=== PATIENT | male | born 1990 ===

== ENCOUNTER 2022-10-09 12:46 | Emergency (ER) | payer SELFPAY ==
--- NOTE | 2022-10-09 12:45 | DI.CT_ITS ---
Exam(s) CT HEAD WO EXAM: CT HEAD WO CLINICAL HISTORY: new onset seizure activity. TECHNIQUE: Imaging Protocol: Axial computed tomography images with coronal and sagittal reformatted images were created and reviewed COMPARISON: No exams were available for comparison FINDINGS: The ventricular system is normal in appearance. No evidence of acute intracranial hemorrhage, mass effect, or midline shift. The orbital structures are unremarkable. The temporal bone structures appear intact. Calvarium: Normal. Visualized Paranasal sinuses/Mastoids: Clear. IMPRESSION: Normal cranial CT. RADIATION DOSE DELIVERED: Total DLP Total DLP DATA REPOSITORY: All CT scans at this facility are submitted to the National Radiology Data Registry (NRDR) Dose Index Registry (DIR) with the [employer] ([employer]). RADIATION OPTIMIZATION: All CT scans at this facility use at least one of these dose optimization te chniques: automated exposure control; mA and/or kV adjustment per patient size (includes targeted exa ms where dose is matched to clinical indication); or iterative reconstruction.
[2022-10-09 12:50] VITALS: BP 116/65; PULSE 79; RESP 17; TEMP 37.4; O2SAT 97
[2022-10-09] MEDS: Lactated Ringers 500 ML 1000 ML IV (13:34)
[2022-10-09 13:37] LABS: Abs Immature Grans 0.02 10^3/uL (0.0-0.06); Absolute Basophil Count 0.02 10^3/uL (0.0-0.2); Absolute Lymphocyte Count 1.25 10^3/uL (1.2-3.4); Absolute Monocyte Count 0.38 10^3/uL (0.1-0.8); Absolute Neutrophil Count 6.59 10^3/uL (1.2-6.7); Basophils % 0.2; Eosinophils % 1.2; HCT 40.1 % (40.0-50.0); HGB 13.4 g/dL (13.5-17.5); Immature Grans % 0.2; MCH 31.4 pg (27.0-33.0); MCHC 33.4 % (32.0-36.0); MCV 94 fL (80-95); MPV 10.8 fL (8.0-11.0); Monocytes % 4.5; Neutrophils % 78.9; RBC 4.27 10^6/uL (4.36-5.78); RDW 12.2 % (11.8-14.1); RDW-SD 41.9 fL; WBC 8.36 10^3/uL (4.4-10.8)
[2022-10-09 14:01] LABS: ALT 46 U/L (16-63); AST 30 U/L (15-37); Albumin 4.3 g/dL (3.4-5.0); Alkaline Phosphatase 96 U/L (46-116); Anion Gap 7.3 mmol/L (3-11); BUN 13 mg/dL (7-18); Bilirubin, Total 0.5 mg/dL (0.2-1.0); CO2 28.7 mmol/L (21.0-32.0); CREATININE 0.9 mg/dL (0.70-1.30); Calcium 8.8 mg/dL (8.5-10.1); Chloride 102 mmol/L (98-107); Estimated GFR 115.65 (mL/min/1.73m2); Glucose 97 mg/dL (74-106); Magnesium 2.2 mg/dL (1.8-2.4); Potassium 4.3 mmol/L (3.5-5.1); Sodium 138 mmol/L (136-145); Total Protein 7.9 g/dL (6.4-8.2); Troponin I < 50 ng/L (<or=60)
[2022-10-09 14:05] LABS: Platelet Count 115 10^3/uL (130-400)
--- NOTE | 2022-10-09 14:29 | W.ED.GENAD ---
Discharge Plan Disposition Patient Disposition: Home Condition: Stable Discharge Details Clinical Impression: Generalized tonic-clonic seizure ED Provider: Jay Jay Grover Home Meds and New Rx's Prescriptions: New levetiracetam [Keppra] 500 mg tablet 500 mg PO BID Qty: 90 0RF Discharge Instructions Additional Instructions: Please take Keppra as prescribed. This medication is available at [facility] at reduced cost. Please follow-up with neurology. Call to schedule an appointment. No operating heavy machinery or driving a motor vehicle until cleared by neurology. Return to the emergency department immediately for any worsening or new concerning symptoms. Referrals: Candelaria Mortensen MD [ [facility] STAFF PHYSICIAN] - Medical Decision Making [id number]--32-year-old male with history of prior seizures, here after episode of loss of consciousness with witnessed seizure activity. I suspect the patient has undiagnosed epilepsy. Unclear if patient has had appropriate work-up in the past as he is here from [place] for temporary work. He notes he has not been on antiepileptic medication. CT of the head was interpreted by radiology: Negative. Labs reviewed and nondiagnostic. I considered other etiologies including arrhythmia. EKG was reviewed and interpreted by me: Please see report, sinus rhythm 67 bpm, benign early repol pattern, normal intervals. Patient was observed and on reassessment remained stable. Keppra 1500 mg IV bolus was administered. Plan is to discharge on Keppra 500 mg twice daily. I called and spoke with Dr. Mortensen and discussed ED presentation course and she agrees with treatment plan. She be happy to see the patient in follow-up in the next couple weeks. Patient was instructed to not use heavy machinery or operate motor vehicle until cleared by neurology. Lab Data Lab results reviewed: Yes I reviewed the patient's lab results. Labs: Laboratory Tests Range/Units 10/09/22 10/09/22 13:23 13:23 WBC (4.4-10.8) 10^3/uL 8.36 RBC (4.36-5.78) 10^6/uL 4.27 L Hgb (13.5-17.5) g/dL 13.4 L Hct (40.0-50.0) % 40.1 MCV (80-95) fL 94 MCH (27.0-33.0) pg 31.4 MCHC (32.0-36.0) % 33.4 RDW (11.8-14.1) % 12.2 Plt Count (130-400) 10^3/uL 115 L MPV (8.0-11.0) fL 10.8 Immature Gran % 0.2 Neutrophils % 78.9 Lymphocytes % 15.0 Monocytes % 4.5 Eosinophils % 1.2 Basophils % 0.2 Nucleated RBC % (0.0-0.3) % 0.0 Absolute Neutrophils (1.2-6.7) 10^3/uL 6.59 Absolute Lymphocytes (1.2-3.4) 10^3/uL 1.25 Absolute Monocytes (0.1-0.8) 10^3/uL 0.38 Absolute Eosinophils (0.0-0.7) 10^3/uL 0.10 Absolute Basophils (0.0-0.2) 10^3/uL 0.02 Sodium (136-145) mmol/L 138 Potassium (3.5-5.1) mmol/L 4.3 Chloride (98-107) mmol/L 102 Carbon Dioxide (21.0-32.0) mmol/L 28.7 Anion Gap (3-11) mmol/L 7.3 BUN (7-18) mg/dL 13 Creatinine (0.70-1.30) mg/dL 0.9 Est GFR (CKD-EPI 2020) (mL/min/1.73m2) 115.65 Glucose (74-106) mg/dL 97 Calcium (8.5-10.1) mg/dL 8.8 Magnesium (1.8-2.4) mg/dL 2.2 Total Bilirubin (0.2-1.0) mg/dL 0.5 AST (15-37) U/L 30 ALT (16-63) U/L 46 Alkaline Phosphatase (46-116) U/L 96 Troponin I (<or=60) ng/L < 50 Total Protein (6.4-8.2) g/dL 7.9 Albumin (3.4-5.0) g/dL 4.3 Sign Out No HPI General Mode of arrival: ambulatory. Date/Time Provider Initiated Documentation: 10/09/22 12:53. Limitations to Documentation: no limitations. Information obtained by: patient and manager competitive intelligence. 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 There was concern from bystanders that he had an apneic episode. EMS noted on arrival he was alert and hemodynamically stable with no neurologic deficits. Patient has no complaints at this time. He does not recall the episode. He notes that in the past he had a witnessed seizure about 4 months ago and prior to that approximately 10 years ago. He denies headache, visual change, numbness or tingling. Related Data Home Medications Medication Instructions Recorded Confirmed levetiracetam 500 mg tablet 500 mg PO BID #90 tabs 10/09/22 (Keppra) Previous Rx's Medication Instructions Recorded levetiracetam 500 mg tablet 500 mg PO BID #90 tabs 10/09/22 (Keppra) Allergies Allergy/AdvReac Type Severity Reaction Status Date / Time No Known Allergies Allergy Unverified 10/09/22 12:58 General Stated Complaint: Seizure GIOVANNI: 3 Review of Systems Constitutional Constitutional: Denies fever(s) Cardiovascular Cardiovascular: Denies chest pain PFSH All Active Problems Generalized tonic-clonic seizure (Acute) Social History Smoking/Tobacco Use Status: Never Smoking risk assessment performed?: Yes Alcohol Intake: current Alcohol Intake frequency: a few times a week Alcohol type: beer Substance use type: does not use Do you feel safe at home: Yes Exam Const General: cooperative and no acute distress [facility] Head: normocephalic and atraumatic Mouth: moist mucous membranes Eyes Conjunctivae: normal conjunctivae Sclera: normal sclerae EOM: EOM intact bilaterally Neck Neck: trachea midline and supple Resp Auscultation: clear to auscultation bilaterally, no rales, no rhonchi and no wheezes Cardio Rate: regular rate and not tachycardic Rhythm: regular rhythm GI Palpation: soft, not firm, no guarding, no masses, not rigid and nontender Skin General skin exam: no rashes or lesions noted Neuro General: patient alert, patient awake, patient oriented x3 and tone normal Cognition: normal cognition Motor: strength 5/5 throughout Sensory Exam: no sensory deficits noted Extrem General: no edema Psych Appearance: grossly normal Mental Status: mental status grossly normal Speech and Movement: speech and movement normal Course Vital Signs Vital signs: Vital Signs Temperature 37.4 C 10/09/22 12:50 Pulse 79 10/09/22 12:50 Respiratory Rate 17 10/09/22 12:50 Blood Pressure 116/65 10/09/22 12:50 Pulse Oximetry 97 10/09/22 12:50 Temperature 37.4 C 10/09/22 12:50 Temperature Source Tympanic 10/09/22 12:50 Pulse 79 10/09/22 12:50 Respiratory Rate 17 10/09/22 12:50 Respiratory Effort Non-Labored 10/09/22 13:00 Respiratory Depth Normal 10/09/22 13:00 Respiratory Pattern Normal 10/09/22 13:00 Blood Pressure 116/65 10/09/22 12:50 Blood Pressure Position Supine 10/09/22 12:50 Pulse Oximetry 97 10/09/22 12:50 Oxygen Delivery Method Room Air 10/09/22 12:50 Oxygen Flow Rate 0 10/09/22 12:50 Lab/Test Results Lab/Test Results: Laboratory Tests Range/Units 10/09/22 10/09/22 13:23 13:23 WBC (4.4-10.8) 10^3/uL 8.36 RBC (4.36-5.78) 10^6/uL 4.27 L Hgb (13.5-17.5) g/dL 13.4 L Hct (40.0-50.0) % 40.1 MCV (80-95) fL 94 MCH (27.0-33.0) pg 31.4 MCHC (32.0-36.0) % 33.4 RDW (11.8-14.1) % 12.2 Plt Count (130-400) 10^3/uL 115 L MPV (8.0-11.0) fL 10.8 Immature Gran % 0.2 Neutrophils % 78.9 Lymphocytes % 15.0 Monocytes % 4.5 Eosinophils % 1.2 Basophils % 0.2 Nucleated RBC % (0.0-0.3) % 0.0 Absolute Neutrophils (1.2-6.7) 10^3/uL 6.59 Absolute Lymphocytes (1.2-3.4) 10^3/uL 1.25 Absolute Monocytes (0.1-0.8) 10^3/uL 0.38 Absolute Eosinophils (0.0-0.7) 10^3/uL 0.10 Absolute Basophils (0.0-0.2) 10^3/uL 0.02 Sodium (136-145) mmol/L 138 Potassium (3.5-5.1) mmol/L 4.3 Chloride (98-107) mmol/L 102 Carbon Dioxide (21.0-32.0) mmol/L 28.7 Anion Gap (3-11) mmol/L 7.3 BUN (7-18) mg/dL 13 Creatinine (0.70-1.30) mg/dL 0.9 Est GFR (CKD-EPI 2020) (mL/min/1.73m2) 115.65 Glucose (74-106) mg/dL 97 Calcium (8.5-10.1) mg/dL 8.8 Magnesium (1.8-2.4) mg/dL 2.2 Total Bilirubin (0.2-1.0) mg/dL 0.5 AST (15-37) U/L 30 ALT (16-63) U/L 46 Alkaline Phosphatase (46-116) U/L 96 Troponin I (<or=60) ng/L < 50 Total Protein (6.4-8.2) g/dL 7.9 Albumin (3.4-5.0) g/dL 4.3 PAWSS Have you Been Recently Intoxicated or Drunk Within the Last 30 days?: No Have you Ever Experienced Previous Episodes of Alcohol Withdrawal?: No Have you ever Experienced Withdrawal Seizures?: No Have you ever Experienced Delirium Tremens(DT)s?: No Have you ever undergone Alcohol Rehabilitation Treatment (i.e, inpt ot outpatient treatment programs)?: No Have you ever Experienced Blackouts?: No Have you ever Combined Alcohol with other Downers within the last 90 days?: No Have you ever Combined Alcohol with any other Substance of Abuse during the last 90 days?: No Result: 0
--- NOTE | 2022-10-09 14:45 | RT.EKG_ITS ---
APPROVED REPORT Exam: Resting ECG Reason for Exam: seizure like activity Patient Location: E HR:67 bpm ECG Measurements Heart Rate 67 AXIS AL 138 P 60 QRSd 103 QRS -28 QT 353 T 10 QTc 374 Conclusion Sinus rhythm...normal P axis, V-rate 60- 99 ST elev, probable normal early repol pattern...ST elevation, age<55
== END 2022-10-09 15:16 | disposition home or self-care (01) ==
PROVIDERS: Emergency Provider Student in an Organized Health Care Education/Training Program
DX: G40.409 Other generalized epilepsy and epileptic syndromes, not intractable, without status epilepticus (principal)
CPT/HCPCS: 36415; 80053; 93005; 96365; 99284; 70450; 83735; 84484; 85025; 93010; J1953